=== PATIENT | male | born 1930 | race Caucasian/White ===

== ENCOUNTER → 2017-02-24 | Emergency (ER) | payer MEDICARE ==
[~2017-02-24] MED LIST: Acetaminophen 500 MG TAB ONE; Adacel (T-DAP) 0.5 ML VIAL ONE; Ibuprofen 800 MG TAB ONE; Sodium Chloride 0.9% 1,000 ML ONE; traMADol HCl 50 MG TAB ONE
[2017-02-24 09:40] LABS: ALT (SGPT) 10 U/L (8-55); AST (SGOT) 14 U/L (5-34); Albumin 3.7 g/dL (3.4-4.8); Alkaline Phosphatase 113 U/L (40-150); Anion Gap 16 mmol/L (10-20); BUN (Urea Nitrogen) 47 mg/dL (8.4-25.7); Bilirubin, Total 0.5 mg/dL (0.2-1.2); Calc. Creatinine Clearance 0 mL/min (70-130); Calcium 9.1 mg/dL (7.8-10.44); Carbon Dioxide 22 mmol/L (23-31); Chloride 102 mmol/L (98-107); Estimated GFR-MDRD 29; Globulin 2.8 g/dL (2.4-3.5); Glucose 134 mg/dL (83-110); Potassium 3.5 mmol/L (3.5-5.1); Protein, Total 6.5 g/dL (5.8-8.1); Sodium 136 mmol/L (136-145)
[2017-02-24 09:41] LABS: Troponin I Less than 0.010 ng/mL (< 0.028)
[2017-02-24 09:54] LABS: Hemoglobin 11.5 g/dL (14.0-18.0); Mean Corpuscular HGB CONC 32.8 g/dL (32.0-36.0); Mean Corpuscular Hemoglobin 28.6 pg (27.0-31.0); Mean Corpuscular Volume 87.1 fl (80.0-94.0); Mean Platelet Volume 6.7 fL (7.4-10.4); Platelet Count 159 thou/uL (130-400); RBC Distribution Width 12.5 % (11.5-14.5); Red Blood Cell (RBC) Count 4.03 mill/uL (4.70-6.10); White Blood Cell (WBC) Count 5.5 thou/uL (4.8-10.8)
[2017-02-24 10:17] LABS: Eosinophils 4 % (0-10); Lymphocytes 18 % (21-51); MDiff Complete? YES; Monocytes 5 % (0-10); Neutrophil 73 % (42-75); PLT Morphology Comment Appears Adequate; RBC Morphology Normal
[2017-02-24 11:33] LABS: Bilirubin Negative (Negative); Blood, Urine Negative (Negative); Clarity Clear (Clear); Glucose, Urine (Dipstick) Negative (Negative); Leukocyte Negative (Negative); Nitrite Negative (Negative); Protein, Urine (Dipstick) Trace mg/dL (Neg-Trace); Urobilinogen 0.2 mg/dL (0.2-1.0)
--- NOTE | 2017-02-24 11:54 | RAD ---
PA CHEST WITH 3 VIEWS RIGHT-SIDED RIBS: Date: 02/24/17 HISTORY: Patient was walking and became dizzy and fell and hit concrete slab. Right rib and side pain. COMPARISON: Chest x-ray on 09/07/16. FINDINGS: Postsurgical changes related to median sternotomy are noted. There is mild elevation of left hemidia phragm with slight blunting of the left lateral costophrenic angle which may be related to either at electasis or tiny left pleural effusion. There is also suggestion of small right pleural effusion. T here is deformity involving the right upper lateral chest wall and scapula related to remote fractur e and deformity of multiple right upper and mid ribs with remote fracture and deformity of the scapu la also seen on prior chest x-ray. There are acute fractures involving the right posterolateral 9th through 12th ribs. No right-sided pneumothorax is visualized. Cardiac silhouette and pulmonary vascu lature are within normal limits. Vascular calcifications seen thoracic aorta. Degenerative changes n oted in the spine. IMPRESSION: 1. Acute fractures involving the right posterolateral 9th through 11th ribs. 2. Remote fracture and deformities involving multiple right-sided ribs, as well as right scapula. 3. Small right pleural effusion and atelectasis. 4. Question of tiny left pleural effusion and atelectasis. POS: [facility]
== END ==
LOC: NAV ERS 08:44
DX: S22.41XA Multiple fractures of ribs, right side, initial encounter for closed fracture (principal); N17.9 Acute kidney failure, unspecified; G51.0 Bell's palsy; E78.5 Hyperlipidemia, unspecified; I10 Essential (primary) hypertension; Z23 Encounter for immunization; W01.198A Fall on same level from slipping, tripping and stumbling with subsequent striking against other object, initial encounter; Y93.01 Activity, walking, marching and hiking
CPT/HCPCS: 36415; 51701; 80053; 81003; 82550; 84484; 85025; 90471; 90715; 93005; J7050

== ENCOUNTER 2017-04-02 09:33 | Outpatient (CLI) | payer MEDICARE ==
[2017-04-02 12:24] LABS: #Eosinphils 0.1 thou/uL (0.0-0.7); #Lymphocytes 1.1 thou/uL (1.20-3.40); #Monocytes 0.5 thou/uL (0.11-0.59); #Neutrophils 4.1 thou/uL (1.40-6.50); %Basophils 0.8 % (0.0-1.0); %Monocytes 9.2 % (0.0-10.0); Hemoglobin 12.3 g/dL (14.0-18.0); Mean Corpuscular HGB CONC 33.3 g/dL (32.0-36.0); Mean Corpuscular Hemoglobin 29.5 pg (27.0-31.0); Mean Corpuscular Volume 88.6 fl (80.0-94.0); Platelet Count 155 thou/uL (130-400); RBC Distribution Width 12.6 % (11.5-14.5); Red Blood Cell (RBC) Count 4.16 mill/uL (4.70-6.10); White Blood Cell (WBC) Count 5.9 thou/uL (4.8-10.8)
[2017-04-02 13:59] LABS: Hemoglobin A1c 5.2 % (4.0-6.0)
[2017-04-02 15:36] LABS: ALT (SGPT) 12 U/L (8-55); AST (SGOT) 21 U/L (5-34); Alkaline Phosphatase 161 U/L (40-150); Anion Gap 18 mmol/L (10-20); BUN (Urea Nitrogen) 22 mg/dL (8.4-25.7); Bilirubin, Direct 0.2 mg/dL (0.1-0.3); Bilirubin, Total 0.4 mg/dL (0.2-1.2); Calc. Creatinine Clearance 0 mL/min (70-130); Calcium 9.2 mg/dL (7.8-10.44); Carbon Dioxide 23 mmol/L (23-31); Chloride 104 mmol/L (98-107); Cholesterol 173 mg/dl (< 200 Desired); Estimated GFR-MDRD 64; Glucose 92 mg/dL (83-110); HDL Cholesterol 29 mg/dL (>60 Neg Risk); LDL Cholesterol, Calculated 100 mg/dL; Potassium 4.1 mmol/L (3.5-5.1); Protein, Total 6.7 g/dL (5.8-8.1); Sodium 141 mmol/L (136-145); Triglycerides 222 mg/dL (Less than 150)
== END 2017-04-02 09:34 | disposition home or self-care (01) ==
LOC: NAVSJIPCSP 09:33
PROVIDERS: ATTEND Family Medicine
DX: I25.10 Atherosclerotic heart disease of native coronary artery without angina pectoris (principal); N40.1 Benign prostatic hyperplasia with lower urinary tract symptoms; I10 Essential (primary) hypertension; M10.9 Gout, unspecified; J34.2 Deviated nasal septum; N13.8 Other obstructive and reflux uropathy; Z79.899 Other long term (current) drug therapy
CPT/HCPCS: 36415; 80048; 80061; 80076; 83036; 84443; 85025

== ENCOUNTER 2018-01-23 08:43 | Outpatient (CLI) | payer MEDICARE ==
--- NOTE | 2018-01-23 11:33 | ULT ---
BILATEARL TESTICULAR ULTRASOUND WITH DOPPLER: HISTORY: Hyperplastic benign uropathy TECHNIQUE: Gomez-scale, color-flow, and spectral Doppler. FINDINGS: The right testis measures 3.1 x 1.8 x 2.8 cm, and the left testis measures 4.3 x 2.6 x 2 cm. The rig ht epididymis measures 9 x 6 mm, and the left epididymis measures 14 x 10 mm. The testicular hypodensity is heterogeneous without a definite focal mass. Symmetric blood flow is d emonstrated to both testes and epididymides. Large bilateral hydroceles are present. IMPRESSION: Large bilateral hydroceles. POS: [facility]
== END 2018-01-23 08:44 | disposition home or self-care (01) ==
LOC: NAV ULT 08:43
PROVIDERS: ATTEND Urology
DX: N40.1 Benign prostatic hyperplasia with lower urinary tract symptoms (principal); N43.3 Hydrocele, unspecified
CPT/HCPCS: 76870; 93976

== ENCOUNTER 2018-12-05 21:35 | Emergency (ER) | payer MEDICARE ==
[2018-12-05] MEDS ORDERED: Lidocaine 1% (PF) 30 ML VIAL ONE (22:06)
--- NOTE | 2018-12-05 22:37 | RAD ---
RIGHT WRIST THREE VIEWS: 12/05/18 HISTORY: Right wrist injury. FINDINGS: Scaphoid waist and ulnar styloid are intact. There is marked joint space narrowing and subchondral sc lerosis at the radiocarpal joint, especially at the lunate. Less prominent degenerative changes of th e first carpometacarpal joint and distal radioulnar joint. No acute fracture or dislocation. Old healed fracture of the first metacarpal is partially visualized. IMPRESSION: Degenerative changes of the wrist. No acute osseous abnormalities are demonstrated. POS: [facility]
--- NOTE | 2018-12-05 22:49 | RAD ---
RIGHT LITTLE FINGER THREE VIEWS: 12/05/17 HISTORY: Right finger injury. FINDINGS: Extensive soft tissue laceration along the medial margin of the finger. 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 No acute fracture, dislocation, or aggressive osseous erosions. Tiny me tallic foreign body overlies the soft tissues immediately lateral to the neck of the proximal phalanx of the middle finger. IMPRESSION: Soft tissue laceration. Mild degenerative changes. POS: [facility]
[2018-12-05] MEDS ORDERED: Bacitracin Zinc 1 Packet ONE (23:15)
== END 2018-12-05 23:50 | disposition home or self-care (01) ==
LOC: NAV ERS 21:35
DX: S61.216A Laceration without foreign body of right little finger without damage to nail, initial encounter (principal); G51.0 Bell's palsy; E78.5 Hyperlipidemia, unspecified; I10 Essential (primary) hypertension; Z79.899 Other long term (current) drug therapy; Z79.82 Long term (current) use of aspirin; W23.0XXA Caught, crushed, jammed, or pinched between moving objects, initial encounter
CPT/HCPCS: 12002; J2001

== ENCOUNTER → 2018-12-12 | Emergency (ER) | payer MEDICARE | LOC: NAV ERS 17:48 | DX: S61.216D Laceration without foreign body of right little finger without damage to nail, subsequent encounter (principal); E78.5 Hyperlipidemia, unspecified; I10 Essential (primary) hypertension; G51.0 Bell's palsy; Z85.828 Personal history of other malignant neoplasm of skin; Z79.82 Long term (current) use of aspirin; Z79.899 Other long term (current) drug therapy | CPT/HCPCS: 99282 ==

== ENCOUNTER 2018-12-16 18:01 | Emergency (ER) | payer MEDICARE | END 2018-12-16 18:50 | disposition home or self-care (01) | LOC: NAV ERS 18:01 | DX: S61.216D Laceration without foreign body of right little finger without damage to nail, subsequent encounter (principal); Z79.899 Other long term (current) drug therapy; Z79.82 Long term (current) use of aspirin ==

== ENCOUNTER 2020-02-28 17:02 | Emergency (ER) | payer MEDICARE ==
[2020-02-28] MEDS ORDERED: Lidocaine 1% (PF) 30 ML VIAL ONE (18:27)
--- NOTE | 2020-02-28 18:56 | CT ---
CT BRAIN 02/28/20 PROVIDED CLINICAL HISTORY: Head injury. COMPARISON: 04/03/04. The ventricular system appears normal in size and morphology. There is no evidence for intracranial h emorrhage or mass effect. Minimal chronic microvascular ischemic changes are seen. The extracranial s oft tissues and osseous structures demonstrate no acute abnormality. IMPRESSION: No evidence for intracranial hemorrhage or skull fracture. POS: [facility]
== END 2020-02-28 19:00 | disposition home or self-care (01) ==
LOC: NAV ERS 17:02
DX: S01.81XA Laceration without foreign body of other part of head, initial encounter (principal); I10 Essential (primary) hypertension; E78.5 Hyperlipidemia, unspecified; E78.00 Pure hypercholesterolemia, unspecified; G51.0 Bell's palsy; Z87.442 Personal history of urinary calculi; W01.0XXA Fall on same level from slipping, tripping and stumbling without subsequent striking against object, initial encounter
CPT/HCPCS: 12013; 70450; J2001